=== PATIENT | female | born 1940 | race Caucasian/White ===

== ENCOUNTER 2016-10-29 06:27 | Emergency (ER) | payer MEDICARE, BC ==
[~2016-10-29] VITALS: Ht 160 cm; Wt 54.5 kg
[~2016-10-29 06:27] MED LIST: CALC-652 PO; COD473OI PO; FLAX340P PO; GLUC1CAP8 PO; UBID1CAP18 PO
[2016-10-29 06:28] VITALS: Ht 160 cm; Wt 54.5 kg
--- OUTSIDE RECORDS SUMMARY | 2016-10-29 06:32 | XMS REPORT | Continuity of Care Document ---
Author Author [facility] Organization [facility] Address Unknown Phone Unavailable Allergies Medications Problems Procedures Results Encounters ACCT No. Visit Date/Time Discharge Status Pt. Type Provider Facility Loc./Unit Complaint [id number] 06/10/2015 14:06:00 2014 14:06:00 DIS Outpatient Tyler VAZQUEZ, Bernardnio oRgers [facility]
[2016-10-29] MEDS ORDERED: [UNRECOGNIZED DRUG - OTHER] (06:38)
[2016-10-29] MEDS ORDERED: GLUT25PO (06:38)
[2016-10-29] MEDS ORDERED: PRED10TA PO (06:38)
--- NOTE | 2016-10-29 06:41 | NUR ---
DR HENRIQUEZ IN
--- NOTE | 2016-10-29 07:09 | ERPDOC ---
Departure Disposition Decision Date: Oct 29, 2016 Disposition Decision Time: 07:09 Disposition: 01 DISCHARGED HOME, SELF-CARE Impression Impression Impression: Primary Impression: Medication reaction Severity: Moderate Condition: Improved Seen By: Physician only Referrals: IFEANYI ORNELAS MD (Family) Patient Instructions: Prednisolone (By mouth) Problems/Meds/Labs Reviewed?: Yes Medications reviewed and manag: Yes Additional Instructions: Cut prednisone to 1 of 2 tabs daily to minimize side effects. Enjoy your trip. Follow up care ordered?: Yes HPI - General Medical General Chief Complaint: General Stated Complaint: HEADACHE Time Seen by Provider: 07:04 HPI - General Medical Initial Comments 76 yo female with reaction to med. She started prednisone yesterday for allergies, 30 mg. has felt jittery since. About 4 this am she wokeup with tingling in both hands and worsening jitteryness. No loc, no confusion, no injury. She is leaving on a trip early this am and was concerned to leave if she was having an issue. Allergies: Coded Allergies: codeine (Verified Allergy, Unknown, 10/29/16) Past History Past Medical History Pt denies signifigant PMH Hx Echocardiogram: No Surgical History Denies Surgeries General: other Vaccines Hx Influenza Vaccination: Yes (MAR 2014) Hx Pneumococcal Vaccination: Yes () Social History Smoking Status: Never smoker Substance Use Type: does not use Alcohol Intake: none Review of Systems Musculoskeletal General: see HPI Neurological General: see HPI Physical Exam General General Nourishment: well nourished, well developed, appears stated age, no acute distress Vitals and Pain Weight: Kilograms: Height (feet): 5 Height (inches): 2.50 Triage Pain Scale: Normal Exams: Head: Normocephalic w/o trauma Neck: Full range of motion, without adenopathy, JVD, bruits or thyromegaly Chest/Resp: Clear all miles, with good airflow, and symmetry bilaterally CV: Regular rate and rhythm, without murmur or gallop, Pulses 2+ all extremities, capillary refill, <2 seconds all ext., no pedal edema noted Abdomen: Bowel sounds positive, soft, non-tender, non-distended, no hepatosplenomegaly, masses or bruits noted Neurologic: Patient is alert, and oriented, cranial nerves, motor/sensory/ cerebellar, exams w/o gross deficits, to observation Psychiatric: Patient exhibits, appropriate attention, emotion and affect Differential Diagnoses Considering: Drug Overdose, Encephalitis, Hypo/Hyperglycemia, Poisoning/ Accidental OD, TIA Progress Progress Progress Reviewed pts symptoms and physical exam. Neuro exam approp with cn II-XII intact, sensory and motor and DTR appropriate all four extremities. Able to answer questions approp. She is cleared to leave on her trip, she declines any lab workup and I agree. D/c home. Discussed side effects and mechanism of action of prednisone.She can cut her dose to only 1 or 2 tabs daily to decrease side effect. DAVID HENRIQUEZ MD Oct 29, 2016 07:09
--- OUTSIDE RECORDS SUMMARY | 2016-10-29 07:09 | XMS REPORT | Continuity of Care Document ---
Author Author [facility] Organization [facility] Address Unknown Phone Unavailable Allergies Medications Problems Procedures Results Encounters ACCT No. Visit Date/Time Discharge Status Pt. Type Provider Facility Loc./Unit Complaint [id number] 06/10/2015 14:06:00 2014 14:06:00 DIS Outpatient Tyler VAZQUEZ, Bernardino Rogers [facility]
[2016-10-29 07:13] VITALS: PULSE 88; RESP 16; TEMP 98.2; O2SAT 99
--- NOTE | 2016-10-29 07:13 | NUR ---
DISMISSAL PT IS FEELING FINE. INSTRUCTIONS REVIEWED. SHE VERBALIZES UNDERSTANDING. DISCHARGED AMB
[2016-10-29 07:15] VITALS: BP 183/72
== END 2016-10-29 07:13 | disposition home or self-care (01) ==
LOC: ED 06:27
DX: R20.2 Paresthesia of skin (principal); R45.0 Nervousness; T38.0X5A Adverse effect of glucocorticoids and synthetic analogues, initial encounter; Y92.9 Unspecified place or not applicable

== ENCOUNTER → 2016-11-19 | Outpatient (CLI) | payer MEDICARE, BC ==
[~2016-11-19] MED LIST changes: +GLUT25PO; +PRED10TA PO; +[UNRECOGNIZED DRUG - OTHER]
== END ==
LOC: WC.BC 10:19
PROVIDERS: ATTEND Nurse Practitioner
DX: Z12.31 Encounter for screening mammogram for malignant neoplasm of breast (principal); C50.912 Malignant neoplasm of unspecified site of left female breast; Z80.3 Family history of malignant neoplasm of breast; Z90.12 Acquired absence of left breast and nipple
CPT/HCPCS: 77063; G0202

== ENCOUNTER 2016-11-23 22:29 | Emergency (ER) | payer MEDICARE, BC ==
[~2016-11-23] VITALS: Ht 157.5 cm; Wt 57.5 kg
[2016-11-23 22:29] VITALS: Ht 157.5 cm; Wt 57.5 kg
--- OUTSIDE RECORDS SUMMARY | 2016-11-23 22:39 | XMS REPORT | Continuity of Care Document ---
Author Author [facility] Organization [facility] Address Unknown Phone Unavailable Allergies Medications Problems Procedures Results Encounters ACCT No. Visit Date/Time Discharge Status Pt. Type Provider Facility Loc./Unit Complaint [id number] 06/10/2015 14:06:00 2014 14:06:00 DIS Outpatient Tyler VAZQUEZ, Bernardino Rogers [facility]
--- OUTSIDE RECORDS SUMMARY | 2016-11-23 22:39 | XMS REPORT | Continuity of Care Document ---
Author Author [facility] Organization [facility] Address Unknown Phone Unavailable Support Name Relationship Address Phone IFEANYI ORNELAS MD Caregiver [address] [place] [address] Unavailable DAVID HENRIQUEZ MD Caregiver [address] [place] [address] Unavailable JAYCEE STOKES Next Of Kin Unknown [phone] Insurance Providers Guarantor Geeta Bell Address [address] [place] [address] Email DENIED/NO TO PORTAL Payer [employer] Select Plan 65 Policy Number [id number] Subscriber's Name Geeta Bell Relationship 18 Self Group Number [id number] Effective Date 15 Payer Medicare Policy Number [id number] Subscriber's Name Geeta Bell Relationship 18 Self Chief Complaint and Reason for Visit Chief Complaint General Reason for Visit [id number] Problems Past Problems Medical Problem Onset Date Medication reaction Unknown Medications Current Home Medications Medication Dose Units Route Directions Days Qty Instructions Start Date Calcium Carbonate (Calcium) 1 Tab Tablet 1 Tab Oral Daily Cod Liver Oil 473 Ml Oil 1 Tbs Oral Daily 02/05/15 Flaxseed 340 Gm Powder 1 Tbs Oral Daily 02/05/15 Glucosam Hcl/Chondro Torrez A/C/Mn (Glucos-Chond 500 Complex Cp) 1 Cap Capsule 1 Cap Oral Daily 09/03/12 Glutamine (L-Glutamine) 25 Gm Powder Daily 10/29/16 Prednisone 10 Mg Tablet 30 Mg Oral Give With Breakfast Take 3 (10 mg ) tablets, by mouth, once a day with breakfast. 10/29/16 Thera-Biotic 1 Cap Daily 10/29/16 Ubidecarenone/Vitamin E Mixed (Coq10 Sg 100 Softgel) 1 Cap Capsule 1 Cap Oral Daily 09/03/12 Social History Social History Problem Response Recorded Date/Time Onset Date Status Chewing Tobacco Status No 09/03/2012 4:35am Not Applicable Not Applicable Hx Substance Use No 10/29/2016 6:28am Not Applicable Not Applicable Hx Alcohol Use No 10/29/2016 6:28am Not Applicable Not Applicable Has the pt used tobacco in the last 12 months No 02/06/2015 6:49am Not Applicable Not Applicable Query Response Start Date Stop Date Smoking Status Never smoker Hospital Discharge Instructions No hospital discharge instructions. Plan of Care Discharge Date 10/29/16 7:13am Disposition 01 DISCHARGED HOME, SELF-CARE Condition at Discharge Improved Instructions/Education Provided Prednisolone (By mouth) Prescriptions See Medication Section Referrals IFEANYI ORNELAS MD Address: [address] [facility] [address] [place] [phone] Additional Instructions/Education Cut prednisone to 1 of 2 tabs daily to minimize side effects. Enjoy your trip. Functional Status No functional status results. Allergies, Adverse Reactions, Alerts Allergen Type Severity Reaction Status Last Updated Codeine Allergy Unknown Active 10/29/16 Immunizations Query Response on File Recorded Date/Time Hx Influenza Vaccination Y MAR 2014 02/06/15 6:49am Hx Pneumococcal Vaccination Y 02/06/15 6:49am Hx Influenza Vaccination Y MAR 2014 02/06/15 6:49am Influenza Vaccine Hx 201510/29/16 6:28am Vital Signs Acute Vital Signs Vital Response Date/Time Temperature (Fahrenheit) 98.2 deg F (96.8 - 99.1) 10/29/2016 7:13am Temperature (Calculated Celsius) 36.61812 degrees C (36.0 - 37.3) 10/29/2016 7:13am Pulse Rate (adult) 88 bpm (60 - 100) 10/29/2016 7:13am Respiratory Rate 16 breaths/min (10 - 20) 10/29/2016 7:13am O2 Sat by Pulse Oximetry 99 % (90 - 100) 10/29/2016 7:13am Blood Pressure 183/72 mm Hg 10/29/2016 7:15am Height (Feet) 5 feet 10/29/2016 6:28am Height (Inches) 3.00 inches 10/29/2016 6:28am Weight (Kilograms) 54.500 kg 10/29/2016 6:28am Body Mass Index (BMI) 21.0 10/29/2016 6:28am Results No known relevant diagnostic tests, laboratory data and/or discharge summary. Procedures No known history of procedures. Encounters Encounter Location Arrival/Admit Date Discharge/Depart Date Attending Provider Departed Emergency Room [facility] 10/29/16 6:27am 10/29/16 7: 13am DAVID HENRIQUEZ MD Recent Diagnosis
[2016-11-23] MEDS ORDERED: NORMAL SALINE 1,000 ML IV ONE (22:45)
--- NOTE | 2016-11-23 22:54 | ERPDOC ---
Departure Disposition Decision Date: November 24, 2016 Disposition Decision Time: 00:12 Disposition: 01 DISCHARGED HOME, SELF-CARE Impression Impression Impression: Primary Impression: Panic attack Additional Impression: Palpitations Severity: Moderate Condition: Improved Seen By: Physician only Referrals: IFEANYI ORNELAS MD (Family) Patient Instructions: Panic Attack (ED) Problems/Meds/Labs Reviewed?: Yes Medications reviewed and manag: Yes Additional Instructions: Continue your routine medications and wearing your heart monitor, see your provider as scheduled later this week or sooner if symptoms worsen. Follow up care ordered?: Yes Mental Status: Alert HPI - Cardiac General Stated Complaint: PALPITATIONS Time Seen by Provider: 22:45 Source: patient, EMS Exam Limitations: clinical condition HPI - Cardiac General Initial Comments Pt has not been feeling well for over a week since starting a new antidepressant. 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 Then tonight awoke with a panic feeling, pounding heart and fear. Called EMS and transported by BLS unit. Once here sx are much improved. Similar to panic attacks in the past. Occurred At: home Onset/Timing: Rapid Duration: 1-3 hrs Severity: moderate Nitro Today/Relief: no nitro taken today Aspirin Today: unknown Associated Symptoms: DENIES: chest pain, cough, diaphoresis, fever/chills, headaches, loss of appetite, malaise, nausea/vomiting, rash, shortness of breath , syncope, weakness Hx of Similar Symptoms: Yes Allergies: Coded Allergies: codeine (Verified Allergy, Unknown, 10/29/16) Past History Past Medical History ENMT: allergies Hx Echocardiogram: No Psychological: anxiety, depression Surgical History General: other Vaccines Hx Influenza Vaccination: Yes (MAR 2014) Hx Pneumococcal Vaccination: Yes () Social History Smoking Status: Never smoker Does patient use chewing tobac: No Second Hand Exposure: No Substance Use Type: does not use Alcohol Intake: none Record Review Pertinent history updated: Yes Review of Systems Constitutional Constitutional: DENIES: appetite decrease, appetite increase, chills, dizziness , fever, weakness ENMT Ears: DENIES: pain Hearing: DENIES: hearing loss, tinnitus Balance: DENIES: vertigo Mouth/Throat: DENIES: change in swallowing, change in voice, hoarsness, painful swallowing, sore throat Cardiovascular Cardiac: DENIES: chest pain, dyspnea on exertion Rhythm/Rate: palpitations, tachycardia, DENIES: irregular beat Vascular: DENIES: pedal edema Pulmonary Respiratory: DENIES: cough, dyspnea, pleuritic chest pain GI Upper Abdomen: DENIES: dysphagia, heartburn/indigestion, nausea, pain, vomiting Lower Abdomen: DENIES: blood in stool, constipation, diarrhea, pain General: DENIES: burning, dysuria, frequency, pain, urgency Musculoskeletal General: DENIES: cramps, joint pain, joint swelling, pain, weakness Integumentary Skin: DENIES: rash, sores Neurological General: DENIES: headache, numbness, tingling, vertigo, weakness Psychiatric Psychiatric: DENIES: anxiety, depression, nervousness Physical Exam General General Nourishment: well nourished, well developed, appears stated age, thin Distress Description Pt appears anxious, but minimally at this time Vitals and Pain First Documented Vital Signs Date Time Temp Pulse Resp B/P Pulse Ox O2 Delivery O2 Flow Rate FiO2 11/23/16 22:29 77 18 144/65 99 Room Air Weight: Kilograms: Height (feet): 5 Height (inches): 3.00 Triage Pain Scale: Normal Exams: Head: Normocephalic w/o trauma Eyes: Pupils are PERRLA w/ EOMI, No scleral icterus, irritation, or foreign bodies noted ENMT: No facial trauma, nasal exudates, pharyngeal erythema, or exudates are noted Neck: Full range of motion, without adenopathy, JVD, bruits or thyromegaly Chest/Resp: Clear all miles, with good airflow, and symmetry bilaterally CV: Regular rate and rhythm, without murmur or gallop, Pulses 2+ all extremities, capillary refill, <2 seconds all ext., no pedal edema noted Abdomen: Bowel sounds positive, soft, non-tender, non-distended, no hepatosplenomegaly, masses or bruits noted Lymphatic: No lymphadenopathy, or lymphedema noted Musculoskeletal: No tenderness, or deformity noted, good range of motion, all extremities Integumentary: No rashes, hives, or bruising noted, hair and nails, without abnormality Neurologic: Patient is alert, and oriented, cranial nerves, motor/sensory/ cerebellar, exams w/o gross deficits, to observation Psychiatric: Patient exhibits, appropriate attention, emotion and affect Progress Results/Orders Orders Procedure Category Date Status Time Iv Lock (Ed Only) EDM 11/23/16 Transmitted 22:45 Cbc W/Auto LAB 11/23/16 Complete Diff-Reflex Manual Cmp - Comprehensive LAB 11/23/16 Complete Metabolic EKG EKG 11/23/16 Logged Troponin I W LAB 11/23/16 Complete Hemolysis Index Ua, Dip Wreflex LAB 11/23/16 Complete Microsc & Seam Rubbing Machine Operator 22:45 Normal Saline (Normal PHA 11/23/16 Complete Saline Iv) 22:45 Lab Results Laboratory Tests Test 11/23/16 23:03 11/23/16 23:04 Turbidity < 20 Sodium Level 140MEQ/L Potassium Level 4.1MEQ/L Chloride Level 97MEQ/L Carbon Dioxide Level 30MEQ/L Anion Gap 13MEQ/L Blood Urea Nitrogen 21.0MG/DL Creatinine 0.6MG/DL Glomerular Filtration Rate Calc 97 BUN/Creatinine Ratio 35RATIO Glucose Level 104MG/DL Calculated Osmolality 272MOSM/KG Calcium Level 9.7MG/DL Total Bilirubin 0.50MG/DL Icterus Index < 2 Aspartate Amino Transf (AST/SGOT) 40U/L Alanine Aminotransferase (ALT/SGPT) 40U/L Alkaline Phosphatase 80U/L Troponin I < 0.012ng/ml Total Protein 7.9G/DL Albumin 4.7G/DL Globulin 3.2G/DL Albumin/Globulin Ratio 1.5RATIO Chemistry Specimen Hemolysis 44 White Blood Count 5.0T/MM3 Red Blood Count 4.52M/MM3 Hemoglobin 14.0GM/DL Hematocrit 42.7% Mean Corpuscular Volume 94.5UM3 Mean Corpuscular Hemoglobin 31.0UUG Mean Corpuscular Hemoglobin Concent 32.8GM/DL RDW Standard Deviation 43.5FL Platelet Count 214T/MM3 Mean Platelet Volume 10.2UM3 Immature Granulocyte % (Auto) 0.2% Neutrophils (%) (Auto) 59.7% Lymphocytes (%) (Auto) 31.7% Monocytes (%) (Auto) 6.8% Eosinophils (%) (Auto) 1.2% Basophils (%) (Auto) 0.4% Absolute Immature Granulocyte (auto 0.01T/MM3 Absolute Neutrophils (auto) 3.0T/MM3 Absolute Lymphocytes (auto) 1.6T/MM3 Absolute Monocytes (auto) 0.3T/MM3 Absolute Eosinophils (auto) 0.1T/MM3 Absolute Basophils (auto) 0.0T/MM3 Urine Collection Type Cleancatch-midstream Urine Color Yellow Urine Turbidity Clear Urine pH 7.0 Urine Specific [place] <=1.005 Urine Protein Negative Urine Glucose (UA) Negative Urine Ketones Negative Urine Blood Negative Urine Nitrite Negative Urine Bilirubin Negative Urine Urobilinogen 0.2EU/DL Urine Leukocyte Esterase Negative Urinalysis Comment Microscopic not ind. Medications Current ED Medications Sodium Chloride (Normal Saline IV) 1,000 ml @ 0 mls/hr Q0M ONCE IV Last administered on 11/23/16 23:08; Start 11/23/16 at 22:45; Stop 11/23/16 at 22:47 ; Status DC Progress Progress EKG - NSR without ischemia, ectopy, or infarction. Given 1LNS - to continued relief of symptoms cbc - n cmp - n ua - n trop - n This appears to be possibly medication induced anxiety versus strict panic attack. KRYSTA RIBERA MD November 23, 2016 22:54
--- OUTSIDE RECORDS SUMMARY | 2016-11-23 22:56 | XMS REPORT | Continuity of Care Document ---
Author Author [facility] Organization [facility] Address Unknown Phone Unavailable Allergies Medications Problems Procedures Results Encounters ACCT No. Visit Date/Time Discharge Status Pt. Type Provider Facility Loc./Unit Complaint [id number] 06/10/2015 14:06:00 2014 14:06:00 DIS Outpatient Tyler VAZUQEZ, Bernardino Rogers [facility]
[2016-11-23 23:10] LABS: BASOPHILS % (AUTO) 0.4 % (0-2); EOSINOPHILS # (AUTO) 0.1 T/MM3 (0-0.5); EOSINOPHILS % (AUTO) 1.2 % (0-4); HCT - HEMATOCRIT 42.7 % (36-46); IMMATURE GRANULOCYTE # (AUTO) 0.01 T/MM3 (0.00-0.03); IMMATURE GRANULOCYTE % (AUTO) 0.2 % (0.0-0.5); LYMPHOCYTES # (AUTO) 1.6 T/MM3 (1-4.8); LYMPHOCYTES % (AUTO) 31.7 % (23-45); MEAN CORPUSCULAR HGB CONC(MCHC 32.8 GM/DL (31-37); MEAN CORPUSCULAR VOLUME 94.5 UM3 (80-100); MEAN PLATELET VOLUME 10.2 UM3 (9.4-12.4); MONOCYTES # (AUTO) 0.3 T/MM3 (0-0.8); MONOCYTES % (AUTO) 6.8 % (0-9.0); NEUTROPHILS % (AUTO) 59.7 % (33-66); RED BLOOD COUNT 4.52 M/MM3 (4.00-5.20)
[2016-11-23 23:15] LABS: BLOOD, URINE NEGATIVE (NEGATIVE); COLOR,URINE YELLOW (YELLOW); LEUKOCYTE ESTERASE ,URINE NEGATIVE (NEGATIVE); NITRITE,URINE NEGATIVE (NEGATIVE); UROBILINOGEN,URINE 0.2 EU/DL (NORMAL)
[2016-11-23 23:19] LABS: ALBUMIN 4.7 G/DL (3.5-5.0); ALBUMIN/GLOBULIN RATIO 1.5 RATIO (1.1-2.2); ALKALINE PHOSPHATASE 80 U/L (38-126); ALT (SGPT) 40 U/L (9-52); ANION GAP 13 MEQ/L (5-15); AST (SGOT) 40 U/L (14-36); BUN/CREATININE RATIO 35 RATIO (6-26); CALCIUM 9.7 MG/DL (8.4-10.2); CHLORIDE 97 MEQ/L (98-107); CO2 - CARBON DIOXIDE 30 MEQ/L (22-30); CREATININE 0.6 MG/DL (0.7-1.2); GLOMERULAR FILTRATION RATE 97; GLUCOSE 104 MG/DL (65-110); POTASSIUM 4.1 MEQ/L (3.6-5); SODIUM 140 MEQ/L (134-144); TOTAL PROTEIN 7.9 G/DL (6.3-8.2)
[2016-11-23] MEDS ORDERED: FLUO10CA21 PO (23:33)
[2016-11-24 00:20] VITALS: BP 163/74; PULSE 103; RESP 23; O2SAT 97
== END 2016-11-24 00:20 | disposition home or self-care (01) ==
LOC: ED 22:29
DX: R00.2 Palpitations (principal); F41.0 Panic disorder [episodic paroxysmal anxiety]
CPT/HCPCS: 80053; 81003; 84484; 85025; 93005; 96360; 99284; J7030